=== PATIENT | male | born 2005 | race Hispanic/Latino ===

== ENCOUNTER → 2024-02-02 | Day surgery (SDC) | payer OTHER ==
[2024-02-01 13:39] LABS: BASOPHILS # (AUTO) 0.1 (0.0-0.1); BASOPHILS % 0.5 % (0.0-1.0); EOSINOPHILS # (AUTO) 0.2 (0.0-0.4); EOSINOPHILS % 1.4 % (0.0-6.0); HEMOGLOBIN 14.1 g/dL (14.0-18.0); MEAN CORPUSCULAR HEMOGLOBIN 30.5 pg (28-32); MONOCYTES # (AUTO) 0.8 (0.2-0.8); MONOCYTES % 7.6 % (4.4-11.3); NEUTROPHILS # (AUTO) 6.6 (2.1-6.9); NEUTROPHILS % 62.2 % (38.7-80.0); PLATELET COUNT 372 x10e3/uL (140-360); RED BLOOD COUNT 4.63 x10e6/uL (4.3-5.7); RED CELL DISTRIBUTION WIDTH 13.5 % (11.7-14.4); WHITE BLOOD COUNT 10.67 x10e3/uL (4.8-10.8)
[~2024-02-02] MED LIST: HYDROCODON-ACE1 EA11 PO
[2024-02-02] MEDS: LACTATED RINGER'S 1,000 ML ONE (05:56)
[2024-02-02] MEDS: FENTANYL CITRATE/PF 100MCG/2 ML INJ ONE (09:15)
[2024-02-02 10:55] VITALS: BP 136/84; PULSE 79; RESP 17; O2SAT 97
== END | disposition home or self-care (01) ==
LOC: OR 06:21
PROVIDERS: ATTEND Surgery
DX: L73.2 Hidradenitis suppurativa (principal); E66.01 Morbid (severe) obesity due to excess calories; F17.210 Nicotine dependence, cigarettes, uncomplicated; Z88.2 Allergy status to sulfonamides; Z01.812 Encounter for preprocedural laboratory examination
CPT/HCPCS: 11451; 15100; 15101; 36415; 85025; 88304; 97606; 99252; J0690; J3010; J7121

== ENCOUNTER → 2024-02-05 | Outpatient (REF) | payer OTHER | LOC: WCC 09:25 | PROVIDERS: ATTEND Plastic Surgery | DX: T81.89XA Other complications of procedures, not elsewhere classified, initial encounter (principal) ==

== ENCOUNTER → 2024-02-08 | Outpatient (REF) | payer OTHER | LOC: WCC 09:14 | PROVIDERS: ATTEND Plastic Surgery | DX: T81.89XA Other complications of procedures, not elsewhere classified, initial encounter (principal) ==

== ENCOUNTER → 2024-02-12 | Outpatient (REF) | payer OTHER | LOC: WCC 09:15 | PROVIDERS: ATTEND Plastic Surgery | DX: T81.89XA Other complications of procedures, not elsewhere classified, initial encounter (principal); S71.101D Unspecified open wound, right thigh, subsequent encounter ==

== ENCOUNTER → 2024-02-15 | Outpatient (REF) | payer OTHER | LOC: WCC 08:00 | PROVIDERS: ATTEND Plastic Surgery | DX: T81.89XA Other complications of procedures, not elsewhere classified, initial encounter (principal); S71.101D Unspecified open wound, right thigh, subsequent encounter ==

== ENCOUNTER → 2024-02-29 | Outpatient (REF) | payer OTHER | LOC: WCC 09:41 | PROVIDERS: ATTEND Plastic Surgery | DX: T81.89XA Other complications of procedures, not elsewhere classified, initial encounter (principal) ==

== ENCOUNTER → 2024-03-14 | Outpatient (REF) | payer OTHER | LOC: WCC 09:13 | PROVIDERS: ATTEND Plastic Surgery | DX: T81.89XA Other complications of procedures, not elsewhere classified, initial encounter (principal) ==